=== PATIENT | female | born 1955 | race Caucasian/White ===

== ENCOUNTER 2023-09-09 12:16 | Emergency (ER) | payer MEDICARE, BC ==
[2023-09-09] MEDS: Lidocaine 1% 5 ML VIAL INJECT ONE (14:39)
[2023-09-09] MEDS: Sodium Chloride 0.9% 10 ML Syringe FLUSH PRN (14:39)
[2023-09-09] MEDS: Morphine 4 MG/ML Syringe IVPUSH ONE (14:39)
== END 2023-09-09 15:11 | disposition home or self-care (01) ==
LOC: JD.ED 12:16
DX: S52.501A Unspecified fracture of the lower end of right radius, initial encounter for closed fracture (principal); W00.9XXA Unspecified fall due to ice and snow, initial encounter
CPT/HCPCS: 25605; 73100; 73110; 96374; 99283; J2270; J3490